=== PATIENT | female | born 1955 | race Caucasian/White ===

== ENCOUNTER 2017-09-15 10:25 | Observation (INO) ==
[2017-09-15] MEDS ORDERED: Ibuprofen 600 MG TABLET PO ONE (11:17)
--- NOTE | 2017-09-15 11:17 | Emergency Department Note ---
Disposition Clinical Impression: Fracture of humerus Qualifiers: Encounter type: initial encounter Humerus Location: surgical neck Fracture type : closed Fracture morphology: unspecified fracture morphology Fracture alignment : displaced Laterality: left Qualified Code(s): S42.212A - Unspecified displaced fracture of surgical neck of left humerus, initial encounter for closed fracture Ischium fracture Qualifiers: Encounter type: initial encounter Fracture type: closed Fracture morphology: unspecified fracture morphology Fracture alignment: nondisplaced Laterality: right Qualified Code(s): S32.601A - Unspecified fracture of right ischium, initial encounter for closed fracture Disposition: Admitted As Inpatient Condition: Fair Time of Disposition: 14:13 General Adult HPI - General Chief complaint: ED Extremity Injury, Upper Stated complaint: Fall left arm/right hip pain Time Seen by Provider: 09/15/17 11:09 Source: patient Limitations: no limitations Nursing Notes Reviewed: Yes Vital Signs Reviewed: Yes - History of Present Illness HPI Narrative: 62 yo female presents to the emergency department with left shoulder and right hip pain after a fall earlier this morning. She fell partially 8:30 AM when she slipped on some sanchez fell backwards she said she did not hit her head lose consciousness and remembers the entire event she is not on any blood thinners. She is complaining of left shoulder pain which is unable to move her left arm. Otherwise the pain does not hurt anywhere else. She is having right hip pain she says is on the right hip and she is having a hard time walking and had to be put in a wheelchair and needed help getting up into bed. Patient has not taken anything for pain at this time. Said it is 10 out of 10 nonradiating sharp stabbing pain. Patient was having no complaints including no nausea vomiting, fevers, chills, back pain, neck pain, chest pain, abdominal pain, changes in balance, pain with urination, loss of bladder or bowel, or tingling on the arms or legs. Pain Scale: 0 - Related Data Home Medications Medication Instructions Recorded Confirmed No Known Home Drugs 09/15/17 09/15/17 Allergies Allergy/AdvReac Type Severity Reaction Status Date / Time Penicillins Allergy Anaphylaxis Verified 09/15/17 13:55 Review of Systems: 10 point review of systems done and negative unless otherwise stated in the history of present illness. All systems ED: reviewed and negative except as stated. Review of Systems: As Per HPI Past Medical History - Past Medical History Attestation: Yes The following information was validated with the patient. Source: patient Medical history: Reports: diabetes - Social History Smoking Status: Former smoker Smokeless Tobacco Status: No Alcohol use: Reports: none Drug use: Reports: none Physical Exam - General Limitations: no limitations General appearance: alert, in no apparent distress - Head Head exam: atraumatic, normocephalic, normal inspection - Eye Eye exam: Present: normal appearance, PERRL, EOMI - ENT ENT exam: normal exam, normal oropharynx, mucous membranes moist - Neck Neck exam: Present: normal inspection, full ROM, trachea midline - Chest Chest inspection: Present: normal inspection, symmetric chest wall rise - Respiratory Respiratory exam: Present: normal lung sounds bilaterally - Cardiovascular Cardiovascular exam: Present: regular rate, normal rhythm, normal heart sounds - Abdominal Exam Abdominal exam: Present: soft, Non-Tender, normal bowel sounds. Absent: tenderness, distention, guarding, rebound, rigidity, trauma - Expanded Upper Extremity Exam Shoulder exam: Present: tenderness (And on palpation all across the shoulder.), swelling (Mild swelling in the left shoulder). Absent: full ROM (Decreased range of motion due to pain), ecchymosis, deformity, dislocation, erythema Arm exam: Present: tenderness (Tenderness located on the upper left arm.) Elbow exam: Present: normal inspection, full ROM Hand exam: Present: normal inspection, full ROM Neuromotor exam: Normal: wrist extension, thumb opposition, thumb IP flexion, thumb adduction, fingers 2-5 abduction Neurosensory exam: Normal: radial nerve, ulnar nerve, median nerve Vascular exam: Normal: capillary refill, radial pulse - Expanded Lower Extremity Exam Hip/Pelvis exam: Present: pelvis stable. Absent: full ROM (Decreased range of motion due to pain.), tenderness, swelling, dislocation, erythema, external rotation, internal rotation, shortening Upper leg exam: Present: normal inspection, full ROM Knee exam: Present: normal inspection, full ROM Neurovascular/Tendon exam: Present: normal capillary refill. Absent: pulse deficit, motor deficit, sensory deficit, tendon deficit - Back Exam Back exam: Present: normal inspection, full ROM. Absent: tenderness, CVA tenderness (R), CVA tenderness (L) - Neurological Exam Neurological exam: Present: alert, oriented X3 - Expanded Neurological Exam Patient oriented to: Present: person, place, time Coma Scale Eye Opening: Spontaneous Coma Scale Motor Response: Obeys Commands Coma Scale Verbal Response: Oriented Coma Scale Total: 15 - Skin Skin exam: Present: warm, dry, intact, normal color Course Course Narrative: 62-year-old female presenting to the emergency department complaining of left shoulder and right hip pain we will get x-rays of the left shoulder and left humerus as well as the right hip. We will give patient Motrin for pain control. Motrin did not work at first for pain so we gave 50 g fentanyl intramuscular. This worked well for pain. Disposition pending results. There is no need to get a head CT is she is alert and oriented GCS is 15 and patient on any anticoagulation sure members the entire event. Also no need to get any CT scan of the neck as she does not meet any nexus criteria. - Reevaluation(s) Reevaluation #1: X-ray of left shoulder came back showing possible surgical neck fracture with displacement and hip x-ray showed a lucency and inferior ramus recommended CT. We will order CT of both left shoulder and right hip for further evaluation of these. Patient was also given an IV and will start IV ketamine for pain control at .2 milligrams per kilogram. Time: 13:12 Vital Signs Temperature 98.3 F 09/15/17 10:35 Pulse Rate 90 09/15/17 10:35 Respiratory Rate 18 09/15/17 10:35 Blood Pressure 140/82 09/15/17 10:35 O2 Sat by Pulse Oximetry 99 09/15/17 10:35 Temperature 98.7 F 09/15/17 17:50 Pulse Rate 97 09/15/17 17:50 Respiratory Rate 16 09/15/17 17:50 Blood Pressure 151/77 09/15/17 17:50 O2 Sat by Pulse Oximetry 95 09/15/17 17:50 Oxygen Delivery Oxygen Delivery Room Air Medical Decision Making - MDM Narrative Medical decision making narrative: 6-year-old female presents to the emergency department for mechanical fall. She does have a surgical neck fracture of the left humerus as well as and she will fracture that was seen on CT. There was no need to do any further laboratories. Patient is still unable to walk so we did place a Hollis catheter. Fentanyl did work well for her pain resided sorry ketamine drip which helped better for her pain. Patient's pain is under control at this time. Although she is unable to walk due to this we felt admission was needed so I spoke with the on-call hospitalist Dr. Shipley who agreed to accept the patient to their service. Also spoke with Dr. Harden the on-call orthopedist who said they will see the patient on the floor. He had no further recommendations. Patient voices no complaint is admitted in stable condition at this time Hip X-Ray 09/15/17 11:16 IMPRESSION: No definite acute fracture is identified. Mild lucency seen along the medial aspect of the inferior pubic ramus. Recommend further evaluation with a dedicated CT scan of the pelvis to assess for possible lucent lesion versus acute injury. D/ / Waqas Coon MD / Waqas Coon MD Interpreting Provider: Waqas Coon MD Humerus X-Ray 09/15/17 11:16 IMPRESSION: 1. Medial shaft width displaced transverse fracture surgical neck left humerus. 2. Remainder of the left humerus is intact, articulating normally at the elbow joint. 3. No retained radiopaque foreign body. D/ / Kulwinder Holm / Kulwinder Holm Interpreting Provider: Kulwinder Holm Shoulder X-Ray 09/15/17 11:16 IMPRESSION: Displaced humeral neck fracture. No other acute fracture is seen in the shoulder. D/ / Waqas Coon MD / Waqas Coon MD Interpreting Provider: Waqas Coon MD Pelvis CT 09/15/17 12:46 IMPRESSION: Mildly displaced fracture just above the ischial tuberosity on the right, without extension to the acetabular surface. D/ / Kofi Khan MD / Kofi Khan MD Interpreting Provider: Kofi Khan MD Shoulder CT 09/15/17 12:46 IMPRESSION: Impacted and slightly angulated humeral neck fracture. D/ / 09/15/2017 13:30:39 Anatoly Allred MD / richi Interpreting Provider: Anatoly Allred MD - Medical Records Medical records reviewed: Yes I reviewed the patient's medical records. - Radiology Data Radiology results reviewed: Yes I reviewed the patient's radiology results. Attestation Statement - Attestation Attestation: I examined this patient and my medical decision-making was reviewed with the Resident Physician. I agree with the documented findings, disposition and treatment plan as described except to the extent set forth below. Neurovascularly intact. Pain treated in ED, evaluated by Ortho in ED, admitted to hospitalist.
[2017-09-15] MEDS ORDERED: *HR* FentaNYL (PF) 100 MCG/2 ML VIAL IM ONE (11:42)
[2017-09-15] MEDS ORDERED: SODIUM CHLORIDE 0.9% IVPB ONE (12:47)
[2017-09-15] MEDS ORDERED: KETAMINE IVPB ONE (12:47)
--- NOTE | 2017-09-15 16:38 | Internal Med History&Physical ---
Date of Encounter: 09/15/17 Time of Encounter: 16:29 Assessment and Plan (1) Fracture of humerus Current visit: Yes Status: Acute As seen on CT examination after a mechanical fall from ice/sanchez. - Orthopedic Surgery consulted, recommendations appreciated. Qualifiers: Encounter type: initial encounter Humerus Location: surgical neck Fracture type: closed Fracture morphology: unspecified fracture morphology Fracture alignment: displaced Laterality: left Qualified Code(s): S42.212A - Unspecified displaced fracture of surgical neck of left humerus, initial encounter for closed fracture (2) Ischium fracture Current visit: Yes Status: Acute As seen on CT exam after fall. - Orthopedic Surgery consulted and recommendations appreciated - oxy sublingual prn pain and Fentanyl IV prn breakthrough Qualifiers: Encounter type: initial encounter Fracture type: closed Fracture morphology: unspecified fracture morphology Fracture alignment: nondisplaced Laterality: right Qualified Code(s): S32.601A - Unspecified fracture of right ischium, initial encounter for closed fracture (3) DVT prophylaxis Current visit: Yes Status: Acute heparin sq 5,000 units BID Internal Medicine - H&P: HPI History of present illness: Ms. Hoffmann is a 62 year old female presented after slipping on stairs with sanchez on it. Patient did not have any LOC and denies weakness. She had CT left shoulder done in ED showing slightly angulated hemeral neck fracture and CT pelvis showed mildly displaced fracture above ischial tuberosity. Past Med Surg Social Fam HX - Past Medical History Medical history: diabetes - Social History Smoking Status: Former smoker Smokeless Tobacco Status: No Alcohol use: none Drug use: none Internal Medicine - H&P: Meds No Known Home Drugs 09/15/17 [History] 3 Allergy/AdvReac Type Severity Reaction Status Date / Time Penicillins Allergy Anaphylaxis Verified 09/15/17 13:55 All Systems PM: A 10-system review of systems was performed and is negative for pertinent findings except as documented above in the HPI. Review of systems: As per HPI - Constitutional Vitals: Temp Pulse Resp BP Pulse Ox 98.3 F 100 18 149/74 93 09/15/17 10:35 09/15/17 14:46 09/15/17 14:46 09/15/17 14:46 09/15/17 14:46 Exam: - General Limitations: no limitations General appearance: alert, in no apparent distress - Head Head exam: atraumatic, normocephalic, normal inspection - Respiratory Respiratory exam: Present: normal lung sounds bilaterally - Cardiovascular Cardiovascular exam: Present: regular rate, normal rhythm, normal heart sounds - Abdominal Exam Abdominal exam: Present: soft, Non-Tender, normal bowel sounds. Absent: tenderness, distention, guarding, rebound, rigidity, trauma - Expanded Upper Extremity Exam Shoulder exam: Present: tenderness (And on palpation all across the shoulder.), swelling (Mild swelling in the left shoulder). Absent: full ROM (Decreased range of motion due to pain), ecchymosis, deformity, dislocation, erythema Arm exam: Present: tenderness (Tenderness located on the upper left arm.) Neuromotor exam: Normal: wrist extension, thumb opposition, thumb IP flexion, thumb adduction, fingers 2-5 abduction Neurosensory exam: Normal: radial nerve, ulnar nerve, median nerve Vascular exam: Normal: capillary refill, radial pulse - Expanded Lower Extremity Exam Hip/Pelvis exam: Present: pelvis stable. Absent: full ROM (Decreased range of motion due to pain.), tenderness, swelling, dislocation, erythema, external rotation, internal rotation, shortening Upper leg exam: Present: normal inspection, full ROM Knee exam: Present: normal inspection, full ROM Neurovascular/Tendon exam: Present: normal capillary refill. Absent: pulse deficit, motor deficit, sensory deficit, tendon deficit - Back Exam Back exam: Present: normal inspection, full ROM. Absent: tenderness, CVA tenderness (R), CVA tenderness (L) - Skin Skin exam: Present: warm, dry, intact, normal color
[2017-09-15] MEDS ORDERED: Naloxone 0.4 MG/ML INJ IVP PRN (16:42)
[2017-09-15] MEDS ORDERED: *HR* FentaNYL (PF) 100 MCG/2 ML VIAL IVP PRN (16:46)
[2017-09-15] MEDS ORDERED: Acetaminophen 325 MG TABLET PO PRN (16:47)
--- NOTE | 2017-09-15 19:53 | Orthopedic Consult Note ---
Date of Encounter: 09/15/17 Time of Encounter: 19:50 Assessment and Plan (1) Fracture of humerus Current Visit: Yes Status: Acute I did discuss the diagnosis in detail with the patient. She has a left proximal humerus fracture as well as a right ischial tuberosity fracture. My recommendation regarding the left shoulder is for trial of nonoperative management with a sling and pendulum exercises. Nonweightbearing to left upper extremity. Follow up for x-ray in 1 week. If she has any further displacement she may require open reduction and internal fixation. Regarding the right ischial tuberosity my recommendation is touchdown weightbearing on the right lower extremity. She may end up requiring a wheelchair for the first few weeks given the left proximal humerus fracture and difficulties with using a walker. DVT prophylaxis per the primary team. Follow up in the office in 1 week for repeat x-rays of the left shoulder and pelvis. I will be available as needed. Qualifiers: Encounter type: initial encounter Humerus Location: surgical neck Fracture type: closed Fracture morphology: unspecified fracture morphology Fracture alignment: displaced Laterality: left Qualified Code(s): S42.212A - Unspecified displaced fracture of surgical neck of left humerus, initial encounter for closed fracture History of Present Illness HPI: Ms. Hoffmann is a 62 year old female who is admitted to the hospitalist after being found to have a left proximal humerus fracture and right ischial tuberosity fracture. She had a non-syncopal fall down the bottom of the set of stairs. On my evaluation patient complains of isolated pain at the left shoulder and the right groin region. No associated numbness, tingling, or other signs or symptoms. Pain is worse with movement of these extremities better with rest. No other modifying factors. She denies any headaches, neck pain, chest pain, abdominal pain, right upper stomach pain, and left lower extremity pain. Past Med Surg Social Fam HX - Past Medical History Medical history: diabetes - Social History Smoking Status: Former smoker Smokeless Tobacco Status: No Alcohol use: none Drug use: none Medications and Allergies No Known Home Drugs 09/15/17 [History] 3 Allergy/AdvReac Type Severity Reaction Status Date / Time Penicillins Allergy Anaphylaxis Verified 09/15/17 13:55 All Systems Reviewed: The remainder of the systems were reviewed and are negative Physical Exam - Constitutional Vitals: Temp Pulse Resp BP Pulse Ox 98.7 F 97 16 151/77 95 09/15/17 17:50 09/15/17 17:50 09/15/17 17:50 09/15/17 17:50 09/15/17 17:50 Constitutional -Vitals reviewed -The patient is well developed and well nourished. -Mood is pleasant. -The patient is well groomed. Psychiatric -The patient is fully alert and oriented x 3. Respiratory: -Respiratory effort normal Abdomen: -Soft abdomen -Non tender -Non distended: Left upper extremity: -No deformities. The overlying skin is intact. No obvious signs of acute trauma. -Tenderness to palpation over the anterior shoulder region. -I did not range the shoulder given her known injury. -No significant pain with passive motion of the elbow, wrist, and fingers within the limits of the bed. -Able to make an "OK" sign, cross the index and long fingers, and extend the thumb. -Sensation grossly intact to light touch throughout the median, radial, and ulnar distributions. -Radial pulse is present; Fingers have good capillary refill. Right upper extremity: -No deformities. The overlying skin is intact. No obvious signs of acute trauma. -No tenderness to palpation throughout. -No significant pain with passive motion of the shoulder, elbow, wrist, and fingers within the limits of the bed. -Able to make an "OK" sign, cross the index and long fingers, and extend the thumb. -Sensation grossly intact to light touch throughout the median, radial, and ulnar distributions. -Radial pulse is present; Fingers have good capillary refill. Left lower extremity: -No deformities. The overlying skin is intact. No obvious signs of acute trauma. -No tenderness to palpation throughout. -No pain with passive motion of the hip, knee, ankle, and toes within the limits of the bed. -No pain with axial loading of the thigh. -Able to dorsiflex and plantarflex the ankle and toes. -Sensation is grossly intact to light touch throughout the sural, saphenous, superficial peroneal, and deep peroneal distributions. -Toes have good capillary refill. Right lower extremity: -No deformities. The overlying skin is intact. No obvious signs of acute trauma. -No tenderness to palpation throughout. -Pain with flexion of the right hip. -No pain with passive motion of the knee, ankle, and toes within the limits of the bed. -No pain with axial loading of the thigh or with log rolling of the right thigh -Able to dorsiflex and plantarflex the ankle and toes. -Sensation is grossly intact to light touch throughout the sural, saphenous, superficial peroneal, and deep peroneal distributions. -Toes have good capillary refill. Diagnostic Imaging: I did personally review and interpret x-rays left shoulder with a CT scan which show a 2 part proximal humerus fracture through the surgical neck with moderate displacement. CT scan of the right hip that show a right ischial tuberosity fracture. Results - Labs Labs: All other labs normal. Consult Discharge Plan - Plan Referrals: NONE,PCP [Primary Care Provider] -
[2017-09-15] MEDS: *HR* Heparin 5,000 UNIT/ML VIAL SQ SCH (20:37)
[2017-09-15] MEDS: 0.9 % Sodium Chloride 1,000 ML IVC SCH (20:38)
[2017-09-15] MEDS: OXYCODONE Oral CONC 10 MG/0.5 ML ORAL.SYG SL PRN (21:34)
[2017-09-15] MEDS: Nicotine 21 MG PATCH.TD24 TD SCH (21:36)
[2017-09-16] MEDS: *HR* HYDROcodone/Acet 5/325 mg TABLET PO PRN ×3 (05:03→21:27)
[2017-09-16] MEDS: *HR* Heparin 5,000 UNIT/ML VIAL SQ SCH ×2 (05:03→17:45)
[2017-09-16 05:49] LABS: Hemoglobin 14.2 g/dL (11.5-15.4); Red Cell Distribution Width 13.3 % (11.5-14.5)
[2017-09-16 05:51] LABS: Basophils % 0.3 %; Eosinophils % 0.4 %; Hematocrit 41.5 % (35.3-44.9); Immature Granulocytes % 0.3 % (0-4); Immature Platelets 12.4 % (1.1-6.1); Lymphocytes # 1.4 K/mcL (0.6-4.6); Lymphocytes % 21.5 %; Mean Corpuscular HGB Conc 34.2 g/dL (31.6-35.5); Mean Corpuscular Hemoglobin 29.1 pg (28.0-33.3); Mean Platelet Volume 12.6 fL (9.4-12.4); Monocytes # 0.7 K/mcL (0.0-1.3); Monocytes % 10.9 %; Neutrophils # 4.5 K/mcL (1.6-8.9); Red Blood Count 4.88 M/mcL (3.82-4.97); Segmented Neutrophils % 66.6 %
[2017-09-16 05:55] LABS: Platelet Count 61 K/mcL (140-400)
[2017-09-16 05:58] LABS: BUN/Creatinine Ratio 29 (6-26); Blood Urea Nitrogen 14 mg/dL (8-23); Calcium 8.7 mg/dL (8.6-10.3); Carbon Dioxide 21 mEq/L (23-29); Chloride 106 mEq/L (98-107); Glucose 319 mg/dL (70-105); Osmolality,Calculated 291 (280-300); Potassium 3.9 mEq/L (3.5-5.1); Sodium 134 mEq/L (136-145); eGFR For African Americans > 60 (> 60); eGFR For Non-African Americans > 60 (> 60)
[2017-09-16 07:46] LABS: Platelet Estimate Decreased (Normal)
[2017-09-16] MEDS: Nicotine 21 MG PATCH.TD24 TD SCH (09:59)
--- NOTE | 2017-09-16 16:13 | Internal Med Progress Note ---
Date of Encounter: 09/16/17 Time of Encounter: 11:00 - Assessment and plan (1) Fracture of humerus Current Visit: Yes Status: Acute Assessment and plan: Patient with left proximal humerus fracture status post mechanical fall down the stairs Orthopedics consult with recommendations for non-operative management with sleeping and [id number] left upper extremity Qualifiers: Encounter type: initial encounter Humerus Location: surgical neck Fracture type: closed Fracture morphology: unspecified fracture morphology Fracture alignment: displaced Laterality: left Qualified Code(s): S42.212A - Unspecified displaced fracture of surgical neck of left humerus, initial encounter for closed fracture (2) Ischium fracture Current Visit: Yes Status: Acute Assessment and plan: -Patient also with right is showed tuberosity fracture and recommendations by orthopedics for nonoperative management as well Physical therapy consulted for recommendations of home health versus half-way facility. Qualifiers: Encounter type: initial encounter Fracture type: closed Fracture morphology: unspecified fracture morphology Fracture alignment: nondisplaced Laterality: right Qualified Code(s): S32.601A - Unspecified fracture of right ischium, initial encounter for closed fracture (3) DVT prophylaxis Current Visit: Yes Status: Acute Assessment and plan: Heparin subcutaneous - Subjective Interval history: Patient with fracture of left proximal humerus and right ischial tuberosity secondary to mechanical fall Physical therapy consult for recommendations - Constitutional Vitals: Temp Pulse Resp BP Pulse Ox 98.4 F 90 16 108/72 97 09/16/17 11:57 09/16/17 11:57 09/16/17 11:57 09/16/17 11:57 09/16/17 11:57 General appearance: Present: A&O X 3, no acute distress - Respiratory Respiratory exam: Present: CTAB. Absent: accessory muscle use, rales, rhonchi, wheezes - Cardiovascular Cardiovascular exam: Present: RRR, +S1, +S2. Absent: diastolic murmur, gallop, rubs, systolic murmur Internal Medicine: Result - Labs CBC & Chem 7: 09/16/17 05:17 09/16/17 05:17 Labs: Short CBC 09/16/17 Range/Units 05:17 WBC 6.7 (4.3-11.1) K/mcL Hgb 14.2 (11.5-15.4) g/dL Hct 41.5 (35.3-44.9) % Plt Count 61 L (140-400) K/mcL Neutrophils # 4.5 (1.6-8.9) K/mcL BMP 09/16/17 05:17 Sodium 134 L Potassium 3.9 Chloride 106 Carbon Dioxide 21 L BUN 14 Creatinine 0.48 L Glucose 319 H Calcium 8.7 Consult Discharge Plan - Plan Referrals: NONE,PCP [Primary Care Provider] -
[2017-09-16] MEDS: 0.9 % Sodium Chloride 1,000 ML IVC SCH (17:45)
[2017-09-16] MEDS ORDERED: *HR* Dextrose 50 % in Water (Syg) 50 ML SYRINGE IVP PRN (23:09)
[2017-09-16] MEDS ORDERED: D5% in Water 1,000 ML IVC PRN (23:09)
[2017-09-16] MEDS ORDERED: Dextrose Gel 15 GM/37.5 ML TUBE PO PRN ×2 (23:09)
[2017-09-16] MEDS ORDERED: Insulin LISPRO 300 UNITS/3 ML VIAL SQ SCH (23:15)
[2017-09-17] MEDS: *HR* Heparin 5,000 UNIT/ML VIAL SQ SCH (05:45)
[2017-09-17 06:48] VITALS: BP 138/80
[2017-09-17] MEDS ORDERED: Insulin LISPRO 300 UNITS/3 ML VIAL SQ SCH (07:30)
[2017-09-17] MEDS: Nicotine 21 MG PATCH.TD24 TD SCH (08:07)
[2017-09-17] MEDS: OXYCODONE Oral CONC 10 MG/0.5 ML ORAL.SYG SL PRN (08:17)
--- NOTE | 2017-09-17 11:16 | Discharge Summary ---
Date of Encounter: 09/17/17 Time of Encounter: 10:00 - Discharge Diagnosis (1) Fracture of humerus Priority: Primary Status: Acute Qualifiers: Encounter type: initial encounter Humerus Location: surgical neck Fracture type: closed Fracture morphology: unspecified fracture morphology Fracture alignment: displaced Laterality: left Qualified Code(s): S42.212A - Unspecified displaced fracture of surgical neck of left humerus, initial encounter for closed fracture (2) Ischium fracture Priority: Primary Status: Acute Qualifiers: Encounter type: initial encounter Fracture type: closed Fracture morphology: unspecified fracture morphology Fracture alignment: nondisplaced Laterality: right Qualified Code(s): S32.601A - Unspecified fracture of right ischium, initial encounter for closed fracture Hospital course: Patient is a 62-year-old female with past medical history significant for diabetes who presents to the ER on 09/15/17 due to left arm and right hip pain. Patient reports that she slipped on the stairs with sanchez on it falling down to the concrete. She was brought into the ER and CT of left shoulder showed slightly angulated hemeral neck fracture and CT pelvis showed mildly displaced fracture above ischial tuberosity. Patient was admitted to medical surgical floor and orthopedic consult for further management. Orthopedics consult with recommendations for non-operative management with sleeping and [id number] left upper extremity. She will be discharged with home health for strengthening/conditioning. - Time Spent with Patient Total time spent providing and/or coordinating discharge services: Less than 30 minutes - Discharge Medications Prescriptions: HYDROcodone/Acet 5/325 mg [Dietrich 5-325 mg] 1 tab PO Q8H PRN 7 Days #20 tablet PRN Reason: Moderate Pain Home Medications: HYDROcodone/Acet 5/325 mg [Dietrich 5-325 mg] 1 tab PO Q8H PRN 7 Days #20 tablet [Rx] Allergies/Adverse Reactions: 3 Allergy/AdvReac Type Severity Reaction Status Date / Time Penicillins Allergy Anaphylaxis Verified 09/15/17 13:55 Date of admission: 09/15/17 16:29 Primary care physician: PCP NONE Consults: 09/15/17 20:11 Consult to Reactor Kettle Operator [CONS] Routine Reason for SW Consult: Discharge planning 09/16/17 11:31 Consult to Physical Therapy [CONS] Routine Comment: Evaluate, develop and implement POC Reason for Consult: Nonoperable left humeral fracture/right ischial fracture. Discharge planning. Does patient have active BEDREST order?: No Is patient medically & hemodynamically stable?: Yes 09/16/17 11:47 Consult to Occupational Therapy [CONS] Routine Comment: Evaluate, develop and implement POC Reason for Consult: Nonoperable left humeral fracture/right ischial fracture. Discharge planning. Does patient have active BEDREST order?: No Is patient medically & hemodynamically stable?: Yes - Constitutional Vitals: Temp Pulse Resp BP Pulse Ox 98.4 F 90 16 138/80 97 09/17/17 06:45 09/17/17 06:45 09/17/17 06:45 09/17/17 06:45 09/17/17 06:45 General appearance: Present: A&O X 3, no acute distress - Patient Status Disposition: Home Health Service Condition: Fair - Discharge Instructions Follow Up With: NONE,PCP [Primary Care Provider] - (PCP referral paper given to patient) Prasanna Dickerson MD [Partnered Physician] - (Web request sent for 1 week follow-up) Additional Instructions: Take medications as prescribed. Call PCP line for follow-up and medication management. Dr Dickerson office will call you with appt time and day. Non-weight bearing to left arm. Toe-touch weight bearing to affected leg.
--- NOTE | 2017-09-17 11:17 | Physician Discharge Referral ---
Home Health/Hosp Referral Info Transfer to: Home Health - Diagnosis (1) Fracture of humerus Priority: Primary Status: Acute (2) Ischium fracture Priority: Primary Status: Acute - Respiratory Orders Smoking Cessation: Smoking cessation has been advised. For more information, call the [place] Tobacco Quit Line at 1-618-ITBS-NOW. - Services Needed Following services are medically necessary services: Nursing, Home Health Aide, Physical Therapy, Occupational Therapy - Transfer Medications Home Medications: No Known Home Drugs 09/15/17 [History] Allergies/Adverse Reactions: 3 Allergy/AdvReac Type Severity Reaction Status Date / Time Penicillins Allergy Anaphylaxis Verified 09/15/17 13:55 Certification: Further, I certify that my clinical findings support that this patient is homebound (i.e. absences from home require considerable and taxing effort and are for medical reasons or islam services or infrequently or short duration when for other reasons) because: Homebound Reason: Patient requires assistance of a person or device to safely leave home Attestation: My signature below is to certify that this patient is under my care and that I, or nurse practitioner, or a physician's radiology physician assistant working with me, has a face-to -face encounter with this patient.
== END 2017-09-17 12:06 | disposition home health service (06) | DRG 563 ==
LOC: EMEROO 10:25 → INTOOBSV 16:29 → 3NENU 16:29
PROVIDERS: ADMIT Student in an Organized Health Care Education/Training Program; ATTEND Hospitalist